=== PATIENT | male | born 1945 | race Caucasian/White ===

== ENCOUNTER → 2016-06-18 | Outpatient (CLI) | payer MEDICARE, BC | LOC: LAB 10:12 | DX: E29.1 Testicular hypofunction (principal) | CPT/HCPCS: 36415; 82670; 84270; 84403; 85025; G0103 ==

== ENCOUNTER → 2016-09-03 | Outpatient (CLI) | payer MEDICARE, BC | END | disposition home or self-care (01) | LOC: LAB.O 12:30 | PROVIDERS: ATTEND Physician Assistant | DX: E29.1 Testicular hypofunction (principal); C61 Malignant neoplasm of prostate ==

== ENCOUNTER → 2016-12-11 | Outpatient (CLI) | payer MEDICARE, BC | END | disposition home or self-care (01) | LOC: LAB.O 09:18 | PROVIDERS: ATTEND Physician Assistant | DX: C61 Malignant neoplasm of prostate (principal) ==

== ENCOUNTER 2017-01-08 18:31 | Emergency (ER) | payer MEDICARE, BC ==
[2017-01-08 18:49] VITALS: TEMP 98.2; O2SAT 95
--- NOTE | 2017-01-08 19:14 | ED.PDOC ---
History of Present Illness - General Chief Complaint: Abdominal Pain Stated Complaint: Abdominal discomfort Time Seen by Provider: 01/08/17 19:09 Information Source: patient Additional Information: HAD PIECE OF WOOD FLY OFF TABLE SAW AND HIT HIM IN THE ABDOMEN. OCCURRED 4 HOURS AGO. C/O CONTINUED PAIN. WAS CONCERNED ABOUT INTERNAL INJURY. - History of Present Illness Abdominal Pain Onset Location: epigastric Pain Radiation: no radiation Quality: moderate, stabbing Improving Factors: nothing Worsening Factors: nothing Review of Systems - Review of Systems Constitutional: Denies: chills, fever EENTM: States: no symptoms reported Respiratory: Denies: cough, short of breath Cardiology: Denies: chest pain, palpitations, syncope Gastrointestinal/Abdominal: States: abdominal pain, vomiting. Denies: nausea Genitourinary: Denies: dysuria, hematuria Musculoskeletal: Denies: back pain, neck pain Skin: States: other - ABRASION Neurological: States: no symptoms reported Endocrine: States: no symptoms reported Past Medical History (General) - Patient Medical History Hx Stroke: No Hx Congestive Heart Failure: No Hx Hypertension: Yes Hx Thyroid Disease: Yes Hx Diabetes: Yes Hx Cancer: Yes - prostate (Rad Tx), thyroid - Vaccination History Hx Influenza Vaccination: No Hx Pneumococcal Vaccination: No - Social History Hx Tobacco Use: No Family Medical History - Family History Father Living Status: Cause of : kidney CA Hx Family Cancer: Yes - kidney Mother Living Status: Age at (years of age): 95 Cause of : old age Hx Family Cancer: Yes - breast CA - tumor Physical Exam - Physical Exam General Appearance: Alert, No apparent distress, Obese Eyes, Ears, Nose, Throat Exam: PERRL/EOMI, normal ENT inspection Neck: non-tender, full range of motion Respiratory: lungs clear, normal breath sounds Cardiovascular/Chest: regular rate, rhythm, no murmur Gastrointestinal/Abdominal: normal bowel sounds, soft, other - LINEAR ABRASION TO EPIGASTIC REGION IN MIDLINE. LARGE NON INCARCERATED VENTRAL HERNIA. SOFT, NO G/R Back Exam: normal inspection, no CVA tenderness Extremity: normal range of motion, non-tender, normal inspection Neurologic: alert, oriented x 3 Skin Exam: other - ABRASION Lymphatic: no adenopathy Progress - EKG/XRAY/CT CT Ordered: Yes - CT ABDOMEN NEG PER RADIOLOGY EXCEPT FOR 3.5 CM AORTIC ANEURYSM Departure - Departure Clinical Impression: Contusion of abdominal wall, initial encounter Hypertension Qualifiers: Hypertension type: essential hypertension Qualified Code(s): I10 - Essential ( primary) hypertension Diabetes Qualifiers: Diabetes mellitus type: type 2 Diabetes mellitus complication status: without complication Time of Disposition: 21:02 Disposition: Discharge to Home or Self Care Condition: Excellent Departure Forms: ED Discharge - Pt. Copy, Patient Portal Self Enrollment Instructions: DI for Contusion Referrals: Jose Kaur MD [Primary Care Provider] - 1-2 Weeks Home Medications: Ambulatory Orders Allopurinol [Zyloprim] 100 mg PO DAILY 05/28/14 Celecoxib [Celebrex] 200 mg PO DAILY 05/28/14 Exenatide [Bydureon] 1 mcg SC WKLY 05/28/14 Furosemide 40 mg PO DAILY 05/28/14 Metformin HCl 1,000 mg PO BID 05/28/14 Rosuvastatin Calcium [Crestor] 10 mg PO DAILY 05/28/14 Silodosin [Rapaflo] 8 mg PO DAILY PRN 05/28/14 Benazepril HCl 40 mg PO DAILY 01/08/17 Levothyroxine Sodium [Synthroid] 100 mcg PO DAILY 01/08/17 Spironolactone 25 mg PO DAILY 01/08/17
--- NOTE | 2017-01-08 20:40 | CT ---
EXAM DESCRIPTION: Abdomen w/Contrast CLINICAL HISTORY: 71 years Male ABDOMINAL TRAUMA COMPARISON: 02/25/2012 TECHNIQUE: Contiguous axial images obtained through the abdomen following IV contrast. Reformatted images obtained. This exam was performed according to our department optimization program which includes automated exposure control, adjustment of the mA and/or kv according to patient size and/or use of iterative reconstruction technique. FINDINGS: The liver appears unremarkable. The spleen and pancreas appear unremarkable. No adrenal masses. The kidneys appear unremarkable. No hydronephrosis. The gallbladder is visualized. There is aneurysmal dilatation of the infrarenal aorta measuring 3.5 cm. Follow-up recommended every 12 months. No evidence of dissection or rupture. No bowel obstruction. The appendix is not visualized.. Pelvis is not included on this exam. Multilevel degenerative change in the spine. IMPRESSION: 3.5 cm infrarenal abdominal aortic aneurysm. Recommend follow-up every 12 months No evidence of acute process in the abdomen Pelvis is not imaged Electronically signed by: Kanwal Thompson 01/08/2017 8:39 PM CDT
[2017-01-08 21:05] VITALS: BP 142/62
== END 2017-01-08 21:12 | disposition home or self-care (01) ==
LOC: ER 18:31
DX: S30.1XXA Contusion of abdominal wall, initial encounter (principal); I10 Essential (primary) hypertension; E11.9 Type 2 diabetes mellitus without complications; I71.4 Abdominal aortic aneurysm, without rupture; Z85.46 Personal history of malignant neoplasm of prostate; Z85.850 Personal history of malignant neoplasm of thyroid; W22.8XXA Striking against or struck by other objects, initial encounter; Y92.9 Unspecified place or not applicable

== ENCOUNTER → 2017-01-31 | Outpatient (CLI) | payer MEDICARE, BC | LOC: RESP 15:20 | PROVIDERS: ATTEND Family Medicine | DX: R00.1 Bradycardia, unspecified (principal) ==

== ENCOUNTER → 2017-02-19 | Outpatient (CLI) | payer MEDICARE, BC | END | disposition home or self-care (01) | LOC: GMAJ 10:50 | PROVIDERS: ATTEND Family Medicine | DX: C61 Malignant neoplasm of prostate (principal) ==

== ENCOUNTER → 2017-09-16 | Outpatient (CLI) | payer MEDICARE, BC | LOC: GMAJ 12:30 | PROVIDERS: ATTEND Family Medicine | DX: C61 Malignant neoplasm of prostate (principal) ==

== ENCOUNTER → 2017-09-19 | Outpatient (CLI) | payer MEDICARE, BC ==
--- NOTE | 2017-09-20 23:38 | CT ---
EXAM DATE: 09/19/2017 12:00 AM CDT. PROCEDURE: CT HEAD WITHOUT IV CONTRAST. INDICATION: HEADACHE. COMPARISON: None. TECHNIQUE: Axial CT images of the head were acquired without intravenous contrast. This exam was performed according to our departmental dose-optimization program which includes use of Automated Exposure Control, adjustment of the mA and/or kV according to patient size and/or use of iterative reconstruction technique. FINDINGS: No acute intracranial hemorrhage. Sykes white matter differentiation is preserved. No mass effect or midline shift. Mild generalized brain volume loss. Unremarkable orbits. Scattered mucosal thickening throughout the paranasal sinuses. Mastoid air cells are clear. Intact calvarium. IMPRESSION: No acute intracranial abnormality. Electronically signed by: Jose Aguilera MD 09/20/2017 11:36 PM CDT
== END ==
LOC: MRI 09:00
PROVIDERS: ATTEND Family Medicine
DX: R51 Headache (principal)

== ENCOUNTER 2017-09-30 05:46 | Day surgery (SDC) | payer MEDICARE, BC ==
[2017-09-30] MEDS ORDERED: LACTATED RINGERS 1,000 ML ONE (06:59)
[2017-09-30 09:27] VITALS: BP 98/63; TEMP 97.7; O2SAT 99
--- NOTE | 2017-09-30 09:48 | OP ---
DATE OF PROCEDURE: 09/30/17 PREOPERATIVE DIAGNOSIS: 1. Colon cancer screen. POSTOPERATIVE DIAGNOSIS: 1. Diverticulosis of the sigmoid colon. PROCEDURE: 1. Colonoscopy. SURGEON: Jose Kaur MD. ANESTHESIA: MAC by Livan Garcia CRNA. ESTIMATED BLOOD LOSS: None. COMPLICATIONS: None apparent. TECHNIQUE: After informed consent was obtained from the patient, the patient was taken to the Endoscopy Suite and put in the left lateral decubitus position. After adequate IV sedation was obtained, a digital rectal exam was performed which revealed decreased sphincter tone, no intraluminal masses, and the prostate is surgically absent. The colonoscope was then passed with good visualization through the colon. The bowel prep was fair. There was a very large amount of liquid stool that had to be suctioned clear, but there was no hard stool. The patient did have whole black-eyed peas in the cecum. The cecum was identified by the presence of ileocecal valve and the usual landmarks. The scope was then withdrawn slowly over the next 10 minutes and a good look at the entire colonic mucosa was obtained. There were a few scattered diverticula seen in the sigmoid region. There were no polyps, masses or other pathology identified. The scope was removed. The patient tolerated the procedure well. The patient was transported to the outpatient area in good condition. He will followup on a p.r.n. basis. He is instructed to stay on his diabetic diet with the addition of high fiber. He will need his next colonoscopy in ten years. #[id number] [id number]
[2017-09-30] MEDS ORDERED: PROPOFOL 200 MG/20 ML VIAL IV ONE (10:00)
== END 2017-09-30 08:55 | disposition home or self-care (01) ==
LOC: AMB 05:46
PROVIDERS: ATTEND Family Medicine
DX: Z12.11 Encounter for screening for malignant neoplasm of colon (principal); K57.30 Diverticulosis of large intestine without perforation or abscess without bleeding; I10 Essential (primary) hypertension; I44.1 Atrioventricular block, second degree; K59.00 Constipation, unspecified; E78.2 Mixed hyperlipidemia; E89.0 Postprocedural hypothyroidism; E11.42 Type 2 diabetes mellitus with diabetic polyneuropathy; G47.33 Obstructive sleep apnea (adult) (pediatric); E66.9 Obesity, unspecified; M10.9 Gout, unspecified; R55 Syncope and collapse; Z95.0 Presence of cardiac pacemaker; Z85.46 Personal history of malignant neoplasm of prostate; Z85.850 Personal history of malignant neoplasm of thyroid; Z96.653 Presence of artificial knee joint, bilateral; Z79.84 Long term (current) use of oral hypoglycemic drugs; Z79.899 Other long term (current) drug therapy
CPT/HCPCS: 00812; 36416; 82948; G0121; J3490; J7120

== ENCOUNTER → 2017-12-05 | Outpatient (CLI) | payer MEDICARE, BC | LOC: LAB.O 08:24 | PROVIDERS: ATTEND Urology | DX: C61 Malignant neoplasm of prostate (principal) ==

== ENCOUNTER 2018-02-18 12:18 | Emergency (ER) | payer MEDICARE, BC ==
[2018-02-18] MEDS ORDERED: KETOROLAC TROMETHAMINE INJ 30 MG/ML VIAL IM ONE (12:46)
--- NOTE | 2018-02-18 12:49 | ED.PDOC ---
History of Present Illness - General Chief Complaint: Dental/Mouth Time Seen by Provider: 02/18/18 12:27 Source: patient Exam Limitations: no limitations - History of Present Illness Initial Comments: patient comes in with left sided severe jaw pain since last night. Patient states yesterday he felt a little bit nauseous and had some tooth pain but it was not bad. This morning he was awakened by severe pain to his jaw and tooth. He has no swelling or redness. He denies any chest pain, shortness of breath, emesis, diaphoresis, or other systemic symptoms. Patient states he has never had this problem before and he did not take any [id number] for it. Patient does have a past medical history of diabetes mellitus, hypertension, and hyperlipidemia. He's had pacemaker placed and states last cardiac appointment was a year ago and he was told he has clear arteries. He's never had heart attack, nor cardiac intervention be on the pacemaker. Timing/Duration: yesterday Severity: moderate EENT Location: dental Prearrival Treatment: no prearrival treatment Improving Factors: nothing Worsening Factors: nothing Associated Symptoms: other - nausea Allergies/Adverse Reactions: Allergies NO KNOWN ALLERGY Allergy (Verified 01/08/17 18:52) Home Medications: Ambulatory Orders Allopurinol [Zyloprim] 100 mg PO DAILY 05/28/14 Celecoxib [Celebrex] 100 mg PO BID 05/28/14 Exenatide [Bydureon] 1 mcg SC WKLY 05/28/14 Furosemide 40 mg PO DAILY 05/28/14 Metformin HCl 1,000 mg PO BID 05/28/14 Rosuvastatin Calcium [Crestor] 10 mg PO DAILY 05/28/14 Silodosin [Rapaflo] 8 mg PO DAILY PRN 05/28/14 Benazepril HCl 40 mg PO DAILY 01/08/17 Levothyroxine Sodium [Synthroid] 100 mcg PO DAILY 01/08/17 Spironolactone 25 mg PO DAILY 01/08/17 Clindamycin HCl 300 mg PO TID #21 cap 02/18/18 Review of Systems - Review of Systems Constitutional: States: no symptoms reported. Denies: chills, fever, weakness EENTM: States: mouth pain. Denies: eye pain, ear pain Respiratory: States: no symptoms reported. Denies: cough, short of breath, wheezing Cardiology: States: no symptoms reported. Denies: chest pain, edema, palpitations Gastrointestinal/Abdominal: States: nausea Genitourinary: States: no symptoms reported Musculoskeletal: States: no symptoms reported Past Medical History (General) - Patient Medical History Hx Stroke: No Hx Congestive Heart Failure: No Hx Hypertension: Yes Hx Thyroid Disease: Yes - thyroid cancer Hx Diabetes: Yes Hx Cancer: Yes - prostate (Rad Tx), thyroid Hx MRSA: No - Vaccination History Hx Influenza Vaccination: No Hx Pneumococcal Vaccination: No - Social History Hx Tobacco Use: No Family Medical History - Family History Father Living Status: Cause of : kidney CA Hx Family Cancer: Yes - kidney Mother Living Status: Age at (years of age): 95 Cause of : old age Hx Family Cancer: Yes - breast CA - tumor Physical Exam - Physical Exam General Appearance: Alert, Comfortable, No apparent distress Eye Exam: bilateral normal Ear Exam: bilateral ear: auricle normal, canal normal, TM normal Nasal Exam: normal inspection Throat Exam: other - cavitary lesions of the inferior 1st and 2nd molar with tenderness to palpation and erythema of the gum and tooth no fluctulance Neck: non-tender, full range of motion, supple Cardiovascular/Respiratory: regular rate, rhythm, no M/R/G, normal peripheral pulses, normal breath sounds, no respiratory distress Abdominal Exam: non-tender Neurologic: alert, oriented x 3 Progress - Results/Orders Results/Orders: Patient Name: REILLY HAY Gender: Male Date of : 1945 CELL Referring Physician: RITO CATHERINE Organization: [facility] Accession Number: [id number] Requested Date: February 18, 2018 12:53 Report Status: Final Requested Procedure: 1 Procedure Description: Maxillofacial Modality: CT Findings Reporting MD: Yury Yao Fellow MD: Not available Dictation Time: Network Professional: Not available Customer Experience Analyst Date: EXAM DESCRIPTION: Maxillofacial: Computed Tomography. CLINICAL HISTORY: left jaw pain. History of thyroid cancer and prostate cancer. COMPARISON: None Available. TECHNIQUE: Spiral, axial 2.5 x 2.5 mm scans through the maxillofacial bones without contrast. Soft tissue and bone algorithms. Coronal and sagittal 2.0 mm reconstructions. Total Exam DLP: 321.68 mGy-cm. This exam was performed according to our departmental CT dose-optimization program which includes automated exposure control, adjustment of the mA and/or kV according to patient size and/or use of iterative reconstruction technique; to reduce radiation dose to as low as reasonably achievable (ALARA). FINDINGS: Mucoperiosteal thickening in the ethmoid air cells. Remaining sinuses are well aerated. No air-fluid levels. Bilateral sphenoid nasal ostia are patent. Bilateral ostiomeatal units are patent. Minimal turbinate mucosal hypertrophy bilaterally. Mild anterior left septal deviation. No bone destruction. Included mastoid air cells are unremarkable. Internal auditory ossicles solitary chambers are grossly normal. No evidence of mandibular fracture or TMJ dislocation or TMJ fracture. Radiolucency noted around bilateral lower molars and upper left second molar. Atlantoaxial arthrosis. Spondylosis and bilateral neural foraminal narrowing C3-4. IMPRESSION: Radiolucency abutting the bilateral mandibular molars, and left upper second molar indicating dental disease. No acute bony abnormality, no destructive or blastic lesions. Mild sinus disease. Cervical spine spondylosis. Findings were discussed by telephone with Dr. Catherine at 1435 hours on 02/18/2018. Electronically signed by: Yury Yao MD 02/18/2018 2:36 PM CDT Departure - Departure Clinical Impression: Dental caries Disposition: Discharge to Home or Self Care Condition: Good Departure Forms: ED Discharge - Pt. Copy, Patient Portal Self Enrollment Instructions: DI for Mouth Pain Diet: regular diet Referrals: Jose Kaur MD [Primary Care Provider] - 1-2 Weeks Home Medications: Ambulatory Orders Allopurinol [Zyloprim] 100 mg PO DAILY 05/28/14 Celecoxib [Celebrex] 100 mg PO BID 05/28/14 Exenatide [Bydureon] 1 mcg SC WKLY 05/28/14 Furosemide 40 mg PO DAILY 05/28/14 Metformin HCl 1,000 mg PO BID 05/28/14 Rosuvastatin Calcium [Crestor] 10 mg PO DAILY 05/28/14 Silodosin [Rapaflo] 8 mg PO DAILY PRN 05/28/14 Benazepril HCl 40 mg PO DAILY 01/08/17 Levothyroxine Sodium [Synthroid] 100 mcg PO DAILY 01/08/17 Spironolactone 25 mg PO DAILY 01/08/17 Clindamycin HCl 300 mg PO TID #21 cap 02/18/18 Additional Instructions: Follow up with dentist in 2-3 days. Return to ER for intractable pain
[2018-02-18 13:19] VITALS: TEMP 97.7
--- NOTE | 2018-02-18 14:38 | CT ---
EXAM DESCRIPTION: Maxillofacial: Computed Tomography. CLINICAL HISTORY: left jaw pain. History of thyroid cancer and prostate cancer. COMPARISON: None Available. TECHNIQUE: Spiral, axial 2.5 x 2.5 mm scans through the maxillofacial bones without contrast. Soft tissue and bone algorithms. Coronal and sagittal 2.0 mm reconstructions. Total Exam DLP: 321.68 mGy-cm. This exam was performed according to our departmental CT dose-optimization program which includes automated exposure control, adjustment of the mA and/or kV according to patient size and/or use of iterative reconstruction technique; to reduce radiation dose to as low as reasonably achievable (ALARA). FINDINGS: Mucoperiosteal thickening in the ethmoid air cells. Remaining sinuses are well aerated. No air-fluid levels. Bilateral sphenoid nasal ostia are patent. Bilateral ostiomeatal units are patent. Minimal turbinate mucosal hypertrophy bilaterally. Mild anterior left septal deviation. No bone destruction. Included mastoid air cells are unremarkable. Internal auditory ossicles solitary chambers are grossly normal. No evidence of mandibular fracture or TMJ dislocation or TMJ fracture. Radiolucency noted around bilateral lower molars and upper left second molar. Atlantoaxial arthrosis. Spondylosis and bilateral neural foraminal narrowing C3-4. IMPRESSION: Radiolucency abutting the bilateral mandibular molars, and left upper second molar indicating dental disease. No acute bony abnormality, no destructive or blastic lesions. Mild sinus disease. Cervical spine spondylosis. Findings were discussed by telephone with Dr. [place] at 1435 hours on 02/18/2018. Electronically signed by: Yury Yao MD 02/18/2018 2:36 PM CDT
[2018-02-18 15:27] VITALS: BP 131/84; O2SAT 96
== END 2018-02-18 15:28 | disposition home or self-care (01) ==
LOC: ER 12:18
DX: K02.9 Dental caries, unspecified (principal); R11.0 Nausea; E11.9 Type 2 diabetes mellitus without complications; I10 Essential (primary) hypertension; E78.5 Hyperlipidemia, unspecified; Z79.84 Long term (current) use of oral hypoglycemic drugs; Z79.899 Other long term (current) drug therapy; Z95.0 Presence of cardiac pacemaker; Z85.46 Personal history of malignant neoplasm of prostate; Z85.850 Personal history of malignant neoplasm of thyroid; Z92.3 Personal history of irradiation
CPT/HCPCS: 70486; J1885

== ENCOUNTER → 2018-06-05 | Outpatient (CLI) | payer MEDICARE, BC | LOC: GMAJ 11:14 | PROVIDERS: ATTEND Family Medicine | DX: E03.9 Hypothyroidism, unspecified (principal) ==

== ENCOUNTER 2018-07-14 00:50 | Emergency (ER) | payer MEDICARE, BC ==
[2018-07-14 01:07] VITALS: TEMP 98.2
[2018-07-14] MEDS ORDERED: SPIRONOLACTONE 25 MG TAB PO ONE (01:18)
--- NOTE | 2018-07-14 01:21 | ED.PDOC ---
History of Present Illness - General Chief Complaint: Blood Pressure Problem Stated Complaint: elevated blood pressure Time Seen by Provider: 07/14/18 01:11 Source: patient Exam Limitations: no limitations - History of Present Illness Initial Comments: the patient is a 72-year-old male presenting to the emergency room secondary to persistently mildly elevated blood pressures today as well as some swelling of his hands. No shortness of breath and no chest pain. No palpitations. No medication changes. Systolic blood pressures have been up in the 150s according to him. Normally his systolic blood pressures are in the 1 teens to 120s. No fever. No palpitations. He is quite anxious. Timing/Duration: unsure Severity: mild Improving Factors: nothing Worsening Factors: nothing Associated Symptoms: denies symptoms Allergies/Adverse Reactions: Allergies NO KNOWN ALLERGY Allergy (Verified 01/08/17 18:52) Home Medications: Ambulatory Orders Allopurinol [Zyloprim] 100 mg PO DAILY 05/28/14 Celecoxib [Celebrex] 100 mg PO BID 05/28/14 Exenatide [Bydureon] 1 mcg SC WKLY 05/28/14 Furosemide 40 mg PO DAILY 05/28/14 Metformin HCl 1,000 mg PO BID 05/28/14 Rosuvastatin Calcium [Crestor] 10 mg PO DAILY 05/28/14 Silodosin [Rapaflo] 8 mg PO DAILY PRN 05/28/14 Benazepril HCl 40 mg PO DAILY 01/08/17 Levothyroxine Sodium [Synthroid] 100 mcg PO DAILY 01/08/17 Spironolactone 25 mg PO DAILY 01/08/17 Clindamycin HCl 300 mg PO TID #21 cap 02/18/18 Review of Systems - Review of Systems Constitutional: States: no symptoms reported EENTM: States: no symptoms reported Respiratory: States: no symptoms reported Cardiology: States: edema Gastrointestinal/Abdominal: States: no symptoms reported Genitourinary: States: no symptoms reported Musculoskeletal: States: no symptoms reported Skin: States: no symptoms reported Neurological: States: anxiety Endocrine: States: no symptoms reported All other Systems: No Change from Baseline Past Medical History (General) - Patient Medical History Hx Stroke: No Hx Cardiac Disorders: Yes - pacemaker Hx Congestive Heart Failure: No Hx Pacemaker: Yes Hx Hypertension: Yes Hx Thyroid Disease: Yes - thyroid cancer Hx Diabetes: Yes Hx Cancer: Yes - prostate Hx MRSA: No Surgical History: appendectomy, pacemaker - Vaccination History Hx Tetanus, Diphtheria Vaccination: No Hx Influenza Vaccination: Yes Hx Pneumococcal Vaccination: No - Social History Hx Tobacco Use: No Hx Chewing Tobacco Use: No Hx Alcohol Use: No Hx Substance Use: No Hx Substance Use Treatment: No Hx Depression: No Hx Physical Abuse: No Hx Emotional Abuse: No Hx Suspected Abuse: No - Female History Patient : No Family Medical History - Family History Father Living Status: Cause of : kidney CA Hx Family Cancer: Yes - kidney Mother Living Status: Age at (years of age): 95 Cause of : old age Hx Family Cancer: Yes - breast CA - tumor Physical Exam - Physical Exam General Appearance: Alert, Comfortable, No apparent distress Eye Exam: bilateral normal Ears, Nose, Throat: hearing grossly normal, normal pharynx Neck: full range of motion, supple, normal inspection Respiratory: lungs clear, normal breath sounds, no respiratory distress, no accessory muscle use Cardiovascular/Chest: normal peripheral pulses, regular rate, rhythm, no edema Peripheral Pulses: radial,right: 2+, radial,left: 2+ Gastrointestinal/Abdominal: non tender, soft Rectal Exam: deferred Extremity: non-tender, no pedal edema, no calf tenderness, normal capillary refill, swelling - subjective swelling of the fingers Neurologic: assistant professor of biology II-XII nml as tested, alert, normal mood/affect, oriented x 3 Skin Exam: normal color Comments: Vital Signs - 24 hr 07/14/18 07/14/18 07/14/18 01:03 01:08 01:14 Temperature 98.2 F Pulse Rate [ 66 62 64 Right] Respiratory 16 16 Rate Blood Pressure 152/97 147/82 120/85 [Left Arm] O2 Sat by Pulse 95 96 95 Oximetry Progress - Progress Progress: 07/14/18 01:21 the patient is a 72-year-old male presenting with a mild elevation of his blood pressure as well as some mild swelling of his fingers today. The patient is going to be given a dose of spironolactone extra tonight. He can continue to follow his blood pressures and keep follow-up with his primary care doctor. Limit salt intake. ER warnings were given. Departure - Departure Clinical Impression: Hand edema Disposition: Discharge to Home or Self Care Condition: Fair Departure Forms: ED Discharge - Pt. Copy, Patient Portal Self Enrollment Diet: low salt diet Activity: increase activity as tolerated Referrals: Jose Kaur MD [Primary Care Provider] - 1-2 Weeks Home Medications: Ambulatory Orders Allopurinol [Zyloprim] 100 mg PO DAILY 05/28/14 Celecoxib [Celebrex] 100 mg PO BID 05/28/14 Exenatide [Bydureon] 1 mcg SC WKLY 05/28/14 Furosemide 40 mg PO DAILY 05/28/14 Metformin HCl 1,000 mg PO BID 05/28/14 Rosuvastatin Calcium [Crestor] 10 mg PO DAILY 05/28/14 Silodosin [Rapaflo] 8 mg PO DAILY PRN 05/28/14 Benazepril HCl 40 mg PO DAILY 01/08/17 Levothyroxine Sodium [Synthroid] 100 mcg PO DAILY 01/08/17 Spironolactone 25 mg PO DAILY 01/08/17 Clindamycin HCl 300 mg PO TID #21 cap 02/18/18 Additional Instructions: the patient is a 72-year-old male presenting with a mild elevation of his blood pressure as well as some mild swelling of his fingers today. The patient is going to be given a dose of spironolactone extra tonight. He can continue to follow his blood pressures and keep follow-up with his primary care doctor. Limit salt intake. ER warnings were given.
[2018-07-14 01:31] VITALS: BP 144/81; O2SAT 96
== END 2018-07-14 01:34 | disposition home or self-care (01) ==
LOC: ER 00:50
DX: R60.0 Localized edema (principal); I10 Essential (primary) hypertension; E11.9 Type 2 diabetes mellitus without complications; Z85.46 Personal history of malignant neoplasm of prostate; Z85.850 Personal history of malignant neoplasm of thyroid; Z95.0 Presence of cardiac pacemaker; Z79.899 Other long term (current) drug therapy

== ENCOUNTER → 2019-02-03 | Outpatient (CLI) | payer MEDICARE, BC | LOC: GMAJ 14:36 | PROVIDERS: ATTEND Family Medicine | DX: E03.9 Hypothyroidism, unspecified (principal); I10 Essential (primary) hypertension; E78.00 Pure hypercholesterolemia, unspecified; E11.9 Type 2 diabetes mellitus without complications ==

== ENCOUNTER → 2019-03-09 | Outpatient (CLI) | payer MEDICARE, BC ==
--- NOTE | 2019-03-09 15:08 | CT ---
EXAM DESCRIPTION: Cervical Spine CLINICAL HISTORY: RADICULOPATHY CERVICAL REGION COMPARISON: None Available. TECHNIQUE: Cervical CT is performed with thin-section axial imaging. MPRs are created and reviewed as well. This exam was performed according to our departmental dose-optimization program, which includes automated exposure control, adjustment of the mA and/or kV according to patient size and/or use of iterative reconstruction technique. FINDINGS: Normal alignment of the cervical spine with preservation of normal lordosis and normal alignment of the vertebral column with preserved vertebral and disc height throughout the spine except for disc degenerative narrowing at C6-7 and to a lesser degree at C5-6 and C7-T1. Advanced degenerative changes anteriorly at the C1-2 articulation is present with normal alignment. On the left diffuse mild to modest facet arthropathy is present. On the right more severe facet arthropathic changes or localized at the C3-4 and C7-T1 levels and to a lesser extent at the other levels. AP diameter of the canal and neural foramina at C2-3 are in the lower range of normal. At C3-4 posterior annular calcification and moderate annular bulge with mild left and moderate right foraminal encroachment is present with AP diameter of the thecal sac lower limits of normal. At C4-5 and modest 3 mm central disc protrusion with calcification without lateralizing to the right or left with adequate neural foramina noted. At C5-6, broad-based disc bulge with disc narrowing and annular calcification and moderate to moderately severe AP diameter canal stenosis is present with severe bilateral foraminal narrowing, left worse than right. At C6-7 broad-based annular bulge and disc osteophyte complex slightly worse on the right than the left with right greater than left foraminal narrowing on this basis and facet disease and disc space narrowing is present. Borderline AP diameter canal stenosis is present. At C7-T1, annular prominence with disc osteophyte complex with adequate canal and neural foramina without lateralizing change noted. Predominant right-sided facet arthropathy does not severely encroach upon the canal at this level. IMPRESSION: 1. Normal alignment of the cervical spine with advanced definite disc degenerative narrowing and posterior bony ridging at C6-7 with milder changes at C5-6 and C7-T1 with additional advanced C1-2 degenerative arthropathy anteriorly and more focal right-sided facet arthropathy at C3-4 and C7-T1. 2. Moderately severe central canal stenosis AP diameter at C5-6 with severe bilateral foraminal narrowing left worse than right. 3. Borderline AP diameter canal narrowing C6-7 with right greater than left foraminal narrowing. Moderate right-sided foraminal narrowing also noted at C3-4. 4. 3 mm central disc protrusion with calcification C4-5 without lateralization to the right or left. Electronically signed by: New Rodriguez MD 03/09/2019 3:06 PM CDT
== END ==
LOC: CT 11:18
PROVIDERS: ATTEND Family Medicine
DX: M50.121 Cervical disc disorder at C4-C5 level with radiculopathy (principal); M50.122 Cervical disc disorder at C5-C6 level with radiculopathy; M50.123 Cervical disc disorder at C6-C7 level with radiculopathy; M50.13 Cervical disc disorder with radiculopathy, cervicothoracic region; M48.02 Spinal stenosis, cervical region; M12.88 Other specific arthropathies, not elsewhere classified, other specified site

== ENCOUNTER → 2019-10-30 | Outpatient (CLI) | payer MEDICARE, BC | LOC: GMAJ 12:07 | PROVIDERS: ATTEND Family Medicine | DX: C61 Malignant neoplasm of prostate (principal); E03.9 Hypothyroidism, unspecified; M10.9 Gout, unspecified; E11.42 Type 2 diabetes mellitus with diabetic polyneuropathy; I10 Essential (primary) hypertension; E78.00 Pure hypercholesterolemia, unspecified ==

== ENCOUNTER 2019-11-15 10:20 | Emergency (ER) | payer MEDICARE, BC ==
--- NOTE | 2019-11-15 10:26 | ED.PDOC ---
History of Present Illness - General Chief Complaint: Cardiovascular Problem Time Seen by Provider: 11/15/19 10:22 Source: patient, RN notes reviewed, Vital Signs reviewed Additional Information: 74yo M h/o pacemaker placement with reported upper abdominal pain. Reports was in zoroastrian and noted acute onset, sharp, non-radiating midepigastric pain. Resolved prior to arrival, and denied any shortness of breath, vomiting, diarrhea, diaphoresis, chest pain, syncope, or other symptoms. Patient denies history of similar pain, but family at bedside reports "slow gallbladder." No other complaints at this time. - History of Present Illness Allergies/Adverse Reactions: Allergies NO KNOWN ALLERGY Allergy (Verified 11/23/18 02:06) Home Medications: Ambulatory Orders Allopurinol [Zyloprim] 300 mg PO DAILY 05/28/14 Celecoxib [Celebrex] 100 mg PO BID 05/28/14 Exenatide [Bydureon] 1 mg SC WKLY 05/28/14 Furosemide 40 mg PO DAILY 05/28/14 Metformin HCl [Metformin Hydrochloride] 1,000 mg PO BID 05/28/14 Rosuvastatin Calcium [Crestor] 10 mg PO DAILY 05/28/14 Benazepril HCl 40 mg PO DAILY 01/08/17 Levothyroxine Sodium [Synthroid] 0.15 mg PO DAILY 01/08/17 Spironolactone 25 mg PO DAILY 01/08/17 Levothyroxine Sodium 300 mcg PO BELLO 11/15/19 Review of Systems - Review of Systems Constitutional: Denies: chills, fever Respiratory: Denies: cough Cardiology: States: chest pain Gastrointestinal/Abdominal: Denies: vomiting All other Systems: Reviewed and Negative Past Medical History (General) - Patient Medical History Hx Seizures: No Hx Stroke: No Hx Dementia: No Hx Asthma: No Hx of COPD: No Hx Cardiac Disorders: Yes - pacemaker-Apr 2017;bradycardia symptomatic Hx Congestive Heart Failure: No Hx Pacemaker: Yes - implanted in 2016 Hx Hypertension: Yes Hx Thyroid Disease: Yes - thyroid cancer Hx Diabetes: Yes Hx Gastroesophageal Reflux: No Hx Renal Disease: No Hx Cancer: Yes - prostate Hx of HIV: No Hx Hepatitis C: No Hx MRSA: No - Vaccination History Hx Tetanus, Diphtheria Vaccination: No Hx Influenza Vaccination: Yes Hx Pneumococcal Vaccination: No - Social History Hx Tobacco Use: No Hx Chewing Tobacco Use: No Hx Alcohol Use: No Hx Substance Use: No Hx Substance Use Treatment: No Hx Depression: No Hx Physical Abuse: No Hx Emotional Abuse: No Hx Suspected Abuse: No - Female History Patient : No Family Medical History - Family History Father Living Status: Cause of : kidney CA Hx Family Cancer: Yes - kidney Mother Living Status: Age at (years of age): 95 Cause of : old age Hx Family Cancer: Yes - breast CA - tumor Physical Exam - Physical Exam General Appearance: Alert, No apparent distress, Well Developed, Well Nourished Eyes, Ears, Nose, Throat Exam: PERRL/EOMI Neck: non-tender, full range of motion Respiratory: chest non-tender, lungs clear, normal breath sounds Cardiovascular/Chest: normal peripheral pulses, regular rate, rhythm, no edema Gastrointestinal/Abdominal: normal bowel sounds, non tender, soft, no pulsatile mass Extremity: non-tender, no pedal edema 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 Patient is awake and alert without noted altered mental status. No noted anginal equivalents for possible intrathoracic etiology, however, patient with pacemaker and transient pain reported in epigastrium. Does not clinically appear torsion, obstruction, or aortic pathology. Abdomen remained soft and non- peritonitic on recheck and patient remained pain free on first recheck. Discussed labs with patient, likelihood repeat troponin would be reassuring, and he voiced understanding and agreement with plan of care. 11/15/19 13:44 Patient continued to be asymptomatic on recheck. Discussed labs, imaging, and plan of care with patient. He and family voiced understanding and desired discharge. ED warnings given, f/u primary care. 11/15/19 13:46 Joe Bailey, #[id number] - EKG/XRAY/CT Comments: 1023 V-paved rate 67, no STEMI Departure - Departure Clinical Impression: Abdominal pain Time of Disposition: 13:45 Disposition: Discharge to Home or Self Care Condition: Good Departure Forms: ED Discharge - Pt. Copy, Patient Portal Self Enrollment Instructions: Stomach Ache and Stomach Upset Diet: low fat, low cholesterol Referrals: Jose Kaur MD [Primary Care Provider] - 1-5 Days Home Medications: Ambulatory Orders Allopurinol [Zyloprim] 300 mg PO DAILY 05/28/14 Celecoxib [Celebrex] 100 mg PO BID 05/28/14 Exenatide [Bydureon] 1 mg SC WKLY 05/28/14 Furosemide 40 mg PO DAILY 05/28/14 Metformin HCl [Metformin Hydrochloride] 1,000 mg PO BID 05/28/14 Rosuvastatin Calcium [Crestor] 10 mg PO DAILY 05/28/14 Benazepril HCl 40 mg PO DAILY 01/08/17 Levothyroxine Sodium [Synthroid] 0.15 mg PO DAILY 01/08/17 Spironolactone 25 mg PO DAILY 01/08/17 Levothyroxine Sodium 300 mcg PO BELLO 11/15/19 Additional Instructions: You were seen in the [facility] Emergency Department today. Please fill and take the medications as prescribed (if any) and if you were prescribed antibiotics, please complete the full course. You will need further evaluation on an out patient basis. You must follow up with the listed locations and within the time frames indicated in your discharge paperwork (including your PCP in 3-5 days). Failure to follow up with any studies or doctor visits within the timeframe mentioned could result in poor outcome. Your examination today in the ED did not reveal a new or old problem that required immediate surgery or admission to the hospital. However, you should return to the ED if you are not improving as instructed (especially within the first 6 to 24 hours). This may include things such as uncontrolled vomiting, shortness of breath, fever, bleeding, or severe pain in a body part. You should return for any new or worsening emergency symptoms such as chest pain, severe headache, confusion, or severe abdominal pain. Finally, return to the emergency department if you have any concerns not mentioned above that are concerning to you or if you are unable to follow up as instructed above. Thank you for coming to [facility]. It was our pleasure to serve you today and we thank you for your visit.
[2019-11-15] MEDS ORDERED: ASPIRIN TABLET 325 MG TAB PO ONE (10:34)
[2019-11-15] MEDS ORDERED: SODIUM CHLORIDE 0.9% (FLUSH) 10 ML SYG IV PRN (10:34)
--- NOTE | 2019-11-15 11:15 | RAD ---
: 1945. Technique: Portable AP chest x-ray. Comparison: November 23, 2018. Clinical history: chest pain. Heart size: Enlarged heart. Left transvenous pacemaker. No vascular congestion. Lungs: The lung bases are underpenetrated due to soft tissue summation. I cannot exclude an infiltrate or atelectasis at the left base where the diaphragm contour is no longer sharply defined. Pleura: No pleural effusion. No pneumothorax. Mediastinum and brooke: Unremarkable. Skeletal: Cervical fusion hardware. Support tubings: None. Impression: 1. Possible left lower lobe atelectasis or infiltrate. 2. Cardiomegaly. Electronically signed by: Antoine Gillis MD 11/15/2019 11:14 AM CDT
[2019-11-15 11:40] VITALS: O2SAT 94
[2019-11-15 14:03] VITALS: BP 134/80; TEMP 98.2
== END 2019-11-15 13:55 | disposition home or self-care (01) ==
LOC: ER 10:20
DX: R10.10 Upper abdominal pain, unspecified (principal); I10 Essential (primary) hypertension; E11.9 Type 2 diabetes mellitus without complications; Z85.46 Personal history of malignant neoplasm of prostate; Z95.0 Presence of cardiac pacemaker

== ENCOUNTER → 2020-03-01 | Outpatient (CLI) | payer MEDICARE, BC ==
--- NOTE | 2020-03-01 14:56 | CT ---
EXAM: Head CLINICAL HISTORY: UNSPEC SYMPTOMS AND SIGNS INVOLVING COGNITIVE FUNCTIONS COMPARISON STUDY: CT head from September 19, 2017 TECHNICAL: Noncontrast CT images were acquired through the brain. FINDINGS: The cerebral and cerebellar parenchyma demonstrate no acute abnormality. There is a mild diffuse cerebral and cerebellar atrophy. No intracranial hemorrhage. No masses are identified. The calvarium appears intact. IMPRESSION: No acute abnormality. This exam was performed according to our departmental dose-optimization program, which includes automated exposure control, adjustment of the mA and/or kV according to patient size and/or use of iterative reconstruction technique. Electronically signed by: Khoa Fernandes MD 03/01/2020 2:54 PM CDT
== END ==
LOC: CT 10:07
PROVIDERS: ATTEND Family Medicine
DX: R41.9 Unspecified symptoms and signs involving cognitive functions and awareness (principal)

== ENCOUNTER → 2020-03-08 | Outpatient (CLI) | payer MEDICARE, BC | LOC: GMAJ 11:29 | PROVIDERS: ATTEND Family Medicine | DX: M10.9 Gout, unspecified (principal); E11.9 Type 2 diabetes mellitus without complications; E78.00 Pure hypercholesterolemia, unspecified ==

== ENCOUNTER 2020-05-03 16:52 | Emergency (ER) | payer MEDICARE, BC ==
--- NOTE | 2020-05-03 17:54 | RAD ---
EXAM: Chest,1 View CLINICAL INDICATION: Cough COMPARISON: 11/15/2019 FINDINGS: A single view of the chest was obtained. The heart size is normal. A left-sided pacemaker is noted. The pulmonary vascularity is unremarkable. The lungs are clear. There is no consolidation, infiltrate, pleural effusion, or pneumothorax. IMPRESSION: No evidence of active pulmonary disease. Electronically signed by: Conor Mccann MD 05/03/2020 5:53 PM WEEKDAY BABYSITTER
[2020-05-03] MEDS ORDERED: SODIUM CHLORIDE 0.9% 1000ML 1,000 ML IVS ONE (18:50)
--- NOTE | 2020-05-03 18:51 | ED.PDOC ---
History of Present Illness - General Chief Complaint: General Stated Complaint: weakness, diarrhea Time Seen by Provider: 05/03/20 17:31 Source: patient Exam Limitations: no limitations - History of Present Illness Initial Comments: weakness, diarrhea x 2 d. POS LU 10 D AGO. NO SOB. GOOD PO INTAKE. Severity: moderate Improving Factors: nothing Worsening Factors: nothing Associated Symptoms: denies symptoms Allergies/Adverse Reactions: Allergies NO KNOWN ALLERGY Allergy (Verified 05/03/20 17:19) Home Medications: Ambulatory Orders Allopurinol [Zyloprim] 300 mg PO DAILY 05/28/14 Celecoxib [Celebrex] 100 mg PO BID 05/28/14 Exenatide [Bydureon] 1 mg SC WKLY 05/28/14 Furosemide 40 mg PO DAILY 05/28/14 Metformin HCl [Metformin Hydrochloride] 1,000 mg PO BID 05/28/14 Rosuvastatin Calcium [Crestor] 10 mg PO DAILY 05/28/14 Benazepril HCl 40 mg PO DAILY 01/08/17 Levothyroxine Sodium [Synthroid] 0.15 mg PO DAILY 01/08/17 Spironolactone 25 mg PO DAILY 01/08/17 Levothyroxine Sodium 300 mcg PO BELLO 11/15/19 Review of Systems - Review of Systems Constitutional: States: weakness. Denies: chills, fever EENTM: States: no symptoms reported Respiratory: States: no symptoms reported. Denies: cough, short of breath Cardiology: States: no symptoms reported. Denies: chest pain, palpitations Gastrointestinal/Abdominal: States: diarrhea. Denies: abdominal pain, nausea, vomiting Genitourinary: States: no symptoms reported Musculoskeletal: States: no symptoms reported Skin: States: no symptoms reported Neurological: States: no symptoms reported Endocrine: States: no symptoms reported Hematologic/Lymphatic: States: no symptoms reported All other Systems: Reviewed and Negative Past Medical History (General) - Patient Medical History Hx Seizures: No Hx Stroke: No Hx Dementia: No Hx Asthma: No Hx of COPD: No Hx Cardiac Disorders: Yes - pacemaker-Apr 2017;bradycardia symptomatic Hx Congestive Heart Failure: No Hx Pacemaker: Yes - implanted in 2016 Hx Hypertension: Yes Hx Thyroid Disease: Yes - thyroid cancer Hx Diabetes: Yes Hx Gastroesophageal Reflux: No Hx Renal Disease: No Hx Cancer: Yes - prostate Hx of HIV: No Hx Hepatitis C: No Hx MRSA: No Surgical History: appendectomy - Vaccination History Hx Tetanus, Diphtheria Vaccination: No Hx Influenza Vaccination: Yes Hx Pneumococcal Vaccination: No - Social History Hx Tobacco Use: No Hx Chewing Tobacco Use: No Hx Alcohol Use: No Hx Substance Use: No Hx Substance Use Treatment: No Hx Depression: No Hx Physical Abuse: No Hx Emotional Abuse: No Hx Suspected Abuse: No - Activities of Daily Living Hospice Agency (if applicable):: None - Female History Patient is a Female of Child Bearing Age (10 -59 yrs old): No Patient : No Family Medical History - Family History Father Living Status: Cause of : kidney CA Hx Family Cancer: Yes - kidney Mother Living Status: Age at (years of age): 95 Cause of : old age Hx Family Cancer: Yes - breast CA - tumor Physical Exam - Physical Exam General Appearance: Alert, Obese Eye Exam: bilateral normal Ears, Nose, Throat: hearing grossly normal, normal ENT inspection Neck: non-tender, full range of motion Respiratory: lungs clear, normal breath sounds Cardiovascular/Chest: regular rate, rhythm, no murmur Peripheral Pulses: radial,right: 2+, radial,left: 2+ Gastrointestinal/Abdominal: normal bowel sounds, non tender, soft Rectal Exam: deferred Back Exam: normal inspection, no CVA tenderness Extremity: normal range of motion, normal inspection, no pedal edema Neurologic: alert, normal mood/affect Skin Exam: normal color, warm/dry Lymphatic: no adenopathy Progress - Results/Orders Results/Orders: COVID NEG. CXR NEG. CMP NEG. CBC UNREMARKABLE (WBC AND LYMPHS JUST BELOW NL). BP 113/68 - BOLUSED NS. 95% RA. VIRAL GASTROENTERITIS CAUSING DIARRHEA AND WEAKNESS. FLUIDS. REST. Departure - Departure Clinical Impression: Viral gastroenteritis, Weakness, Mild dehydration Diarrhea Qualifiers: Diarrhea type: infectious Qualified Code(s): A09 - Infectious gastroenteritis and colitis, unspecified Disposition: Discharge to Home or Self Care Condition: Good Departure Forms: ED Discharge - Pt. Copy, Patient Portal Self Enrollment Instructions: Viral Gastroenteritis, Adult (DC) Diet: bland diet Activity: other - Get plenty of rest. Referrals: Jose Kaur MD [Primary Care Provider] - 1-2 Weeks Home Medications: Ambulatory Orders Allopurinol [Zyloprim] 300 mg PO DAILY 05/28/14 Celecoxib [Celebrex] 100 mg PO BID 05/28/14 Exenatide [Bydureon] 1 mg SC WKLY 05/28/14 Furosemide 40 mg PO DAILY 05/28/14 Metformin HCl [Metformin Hydrochloride] 1,000 mg PO BID 05/28/14 Rosuvastatin Calcium [Crestor] 10 mg PO DAILY 05/28/14 Benazepril HCl 40 mg PO DAILY 01/08/17 Levothyroxine Sodium [Synthroid] 0.15 mg PO DAILY 01/08/17 Spironolactone 25 mg PO DAILY 01/08/17 Levothyroxine Sodium 300 mcg PO BELLO 11/15/19 Additional Instructions: Drink at least 64 ounces of water and fluids per day.
[2020-05-03 20:14] VITALS: O2SAT 94
[2020-05-03 20:56] VITALS: BP 116/70; TEMP 97.5
== END 2020-05-03 20:56 | disposition home or self-care (01) ==
LOC: ER 16:52
DX: A08.4 Viral intestinal infection, unspecified (principal); E86.0 Dehydration; I10 Essential (primary) hypertension; E11.9 Type 2 diabetes mellitus without complications; E66.9 Obesity, unspecified; Z20.828 Contact with and (suspected) exposure to other viral communicable diseases; Z95.0 Presence of cardiac pacemaker; Z85.46 Personal history of malignant neoplasm of prostate; Z85.850 Personal history of malignant neoplasm of thyroid; Z90.49 Acquired absence of other specified parts of digestive tract; Z79.84 Long term (current) use of oral hypoglycemic drugs; Z79.899 Other long term (current) drug therapy; Z68.35 Body mass index [BMI] 35.0-35.9, adult
CPT/HCPCS: 36415; 71045; 80053; 85025; 87635; J7030

== ENCOUNTER → 2020-07-11 | Outpatient (CLI) | payer MEDICARE, BC | LOC: GMAJ 10:38 | PROVIDERS: ATTEND Family Medicine | DX: D51.9 Vitamin B12 deficiency anemia, unspecified (principal); I10 Essential (primary) hypertension; E11.9 Type 2 diabetes mellitus without complications; E78.00 Pure hypercholesterolemia, unspecified ==

== ENCOUNTER 2020-07-30 21:55 | Emergency (ER) | payer MEDICARE, BC ==
[2020-07-30] MEDS ORDERED: ONDANSETRON INJ 4 MG/2 ML VIAL IV ONE (22:12)
[2020-07-30] MEDS ORDERED: HYDROmorphone HCL INJ 2 MG/ML VIAL IV ONE (22:12)
--- NOTE | 2020-07-30 22:18 | ED.PDOC ---
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 HE HAS HAD SEVERAL EPISODES OF NAUSEA AND VOMITING, BOTH THE PAIN AND THE NAUSEA IS BETTER NOW. DENIES OTHER ASSOCIATED SYMPTOMS Abdominal Pain Onset Location: epigastric Pain Radiation: no radiation Timing/Duration: 1 hour Improving Factors: nothing Worsening Factors: nothing Associated Symptoms: denies symptoms Review of Systems - Review of Systems Constitutional: States: diaphoresis EENTM: States: no symptoms reported Respiratory: States: no symptoms reported Cardiology: States: no symptoms reported Gastrointestinal/Abdominal: States: see HPI Genitourinary: States: no symptoms reported Musculoskeletal: States: no symptoms reported Skin: States: no symptoms reported Neurological: States: no symptoms reported Endocrine: States: no symptoms reported Hematologic/Lymphatic: States: no symptoms reported Past Medical History (General) - Patient Medical History Hx Seizures: No Hx Stroke: No Hx Dementia: No Hx Asthma: No Hx of COPD: No Hx Cardiac Disorders: Yes - pacemaker-Apr 2017;bradycardia symptomatic Hx Congestive Heart Failure: No Hx Pacemaker: Yes - implanted in 2016 Hx Hypertension: Yes Hx Thyroid Disease: Yes - thyroid cancer Hx Diabetes: Yes Hx Gastroesophageal Reflux: No Hx Renal Disease: No Hx Cancer: Yes - prostate Hx of HIV: No Hx Hepatitis C: No Hx MRSA: No Surgical History: appendectomy, other - MULTIPLE JOINT SURGERIES, VENTRAL HERNIA REPAIR - Vaccination History Hx Tetanus, Diphtheria Vaccination: No Hx Influenza Vaccination: Yes Hx Pneumococcal Vaccination: No - Social History Hx Tobacco Use: No Hx Chewing Tobacco Use: No Hx Alcohol Use: No Hx Substance Use: No Hx Substance Use Treatment: No Hx Depression: No Hx Physical Abuse: No Hx Emotional Abuse: No Hx Suspected Abuse: No - Female History Patient : No Family Medical History - Family History Father Living Status: Cause of : kidney CA Hx Family Cancer: Yes - kidney Mother Living Status: Age at (years of age): 95 Cause of : old age Hx Family Cancer: Yes - breast CA - tumor Physical Exam - Physical Exam General Appearance: Alert, Well Developed, Well Groomed, Well Hydrated, Well Nourished Eyes, Ears, Nose, Throat Exam: PERRL/EOMI, normal ENT inspection, TMs normal, pharynx normal Neck: non-tender, full range of motion, supple, normal inspection Respiratory: lungs clear, normal breath sounds, no respiratory distress Cardiovascular/Chest: normal peripheral pulses, regular rate, rhythm, no edema, no gallop, no JVD, no murmur Peripheral Pulses: No deficit Gastrointestinal/Abdominal: normal bowel sounds, non tender, soft Pelvic Exam: normal external exam, normal adnexa, no cerv. motion tender Progress - Progress Progress: 07/30/20 22:38 EXAM: Chest,1 View CLINICAL INDICATION: Abdominal pain COMPARISON: 05/03/2020 FINDINGS: A single view of the chest was obtained. The heart size is normal. The pulmonary vascularity is unremarkable. The lungs are clear. There is no consolidation, infiltrate, pleural effusion, or pneumothorax. A left-sided pacemaker is noted. IMPRESSION: No evidence of active pulmonary disease. Electronically signed by: Conor Mccann MD 07/30/2020 10:35 PM 2238: NAUSEA IMPROVED POST ZOFRAN. - Additional EKG/XRAY/Consults EKG #2: Sinus, no ST T wave changes Comments: PROLONGED QT, LAFB, LVH WITH REPOLARIZATION ABN, NO STEMI, ABN EKG Departure - Departure Clinical Impression: Gastroenteritis Time of Disposition: 23:20 Disposition: Discharge to Home or Self Care Departure Forms: ED Discharge - Pt. Copy, Patient Portal Self Enrollment Instructions: DI for Abdominal Pain-Adult Diet: other - CLEAR LIQUID X 24 HOURS, THEN BRAT DIET X 24 HOURS THEN REGULAR Referrals: Jose Kaur MD [Primary Care Provider] - 1-2 Weeks Prescriptions: Ondansetron Odt [Zofran ODT] 8 mg PO TID PRN #20 tab PRN Reason: Nausea Home Medications: Ambulatory Orders Allopurinol [Zyloprim] 300 mg PO DAILY 05/28/14 Celecoxib [Celebrex] 100 mg PO BID 05/28/14 Furosemide 40 mg PO DAILY 05/28/14 Metformin HCl [Metformin Hydrochloride] 1,000 mg PO BID 05/28/14 Rosuvastatin Calcium [Crestor] 10 mg PO DAILY 05/28/14 Benazepril HCl 40 mg PO DAILY 01/08/17 Levothyroxine Sodium [Synthroid] 0.15 mg PO DAILY 01/08/17 Ondansetron Odt [Zofran ODT] 8 mg PO TID PRN #20 tab 07/30/20 Additional Instructions: RETURN IF UNABLE TO KEEP LIQUIDS DOWN.
--- NOTE | 2020-07-30 22:36 | RAD ---
EXAM: Chest,1 View CLINICAL INDICATION: Abdominal pain COMPARISON: 05/03/2020 FINDINGS: A single view of the chest was obtained. The heart size is normal. The pulmonary vascularity is unremarkable. The lungs are clear. There is no consolidation, infiltrate, pleural effusion, or pneumothorax. A left-sided pacemaker is noted. IMPRESSION: No evidence of active pulmonary disease. Electronically signed by: Conor Mccann MD 07/30/2020 10:35 PM LEAD TRAINER
[2020-07-30] MEDS ORDERED: PROMETHAZINE HCL INJ 25 MG/ML VIAL IM ONE (22:49)
[2020-07-30] MEDS ORDERED: SODIUM CHLORIDE 0.9% 1000ML 1,000 ML IVS ONE (22:59)
--- NOTE | 2020-07-30 23:12 | CT ---
EXAM: CT Abdomen and Pelvis Without Intravenous Contrast CLINICAL HISTORY: The patient is 74 years old and is Male; epigastric pain TECHNIQUE: Axial computed tomography images of the abdomen and pelvis without intravenous contrast. Sagittal and coronal reformatted images were created and reviewed. This CT exam was performed using one or more of the following dose reduction techniques: automated exposure control, adjustment of the mA and/or kV according to patient size, and/or use of iterative reconstruction technique. COMPARISON: CT of the abdomen and pelvis November 26, 2018 FINDINGS: LUNG BASES: Unremarkable. No mass. No consolidation. ABDOMEN: LIVER: Homogeneous without focal mass. GALLBLADDER AND BILE DUCTS: The gallbladder is physiologically distended. No calcified gallstones or ductal dilatation is seen. PANCREAS: Unremarkable. No ductal dilation. SPLEEN: Unremarkable. ADRENALS: Unremarkable. No mass. KIDNEYS AND URETERS: A 2.7 cm left renal cyst is present. There is no hydronephrosis or hydroureter of either kidney. No obstructing renal or ureteral calculus is seen. Bilateral nonspecific perinephric stranding is present. STOMACH AND BOWEL: The stomach is distended with food contents. The small bowel is relatively normal in caliber. A few small bowel loops within the central abdomen are minimally prominent with adjacent stranding of the mesentery. A moderate amount stool is present throughout colon. There is no bowel obstruction. PELVIS: APPENDIX: No findings to suggest acute appendicitis. BLADDER: The bladder is moderately distended. No stones. REPRODUCTIVE: The prostate is minimally prominent. ABDOMEN and PELVIS: INTRAPERITONEAL SPACE: Unremarkable. No free air. No significant fluid collection. BONES/JOINTS: Multilevel degenerative change of the spine is present. SOFT TISSUES: The soft tissues are normal. VASCULATURE: Multiple calcified phleboliths are present within the pelvis. Atherosclerosis of the vasculature is present. There is mild dilatation of the infrarenal abdominal aorta measuring 4 cm is noted. LYMPH NODES: Unremarkable. No enlarged lymph nodes. IMPRESSION: 1. Few prominent small bowel loops within the left/central abdomen with adjacent stranding in the mesentery may be secondary to a focal enteritis. There is no evidence of bowel obstruction. 2. Aneurysmal dilatation of the abdominal aorta. Recommend follow-up every 12 months and vascular consultation. Reference: J Am Nadja Radiol 2013;10:789-794. Electronically signed by: Idalia Abarca MD 07/30/2020 11:10 PM MOBILE DESIGNER
[2020-07-31 00:14] VITALS: BP 127/78; TEMP 98; O2SAT 98
== END 2020-07-31 00:05 | disposition home or self-care (01) ==
LOC: ER 21:55
DX: K52.9 Noninfective gastroenteritis and colitis, unspecified (principal); I45.81 Long QT syndrome; I44.4 Left anterior fascicular block; I51.7 Cardiomegaly; I10 Essential (primary) hypertension; E11.9 Type 2 diabetes mellitus without complications; Z90.49 Acquired absence of other specified parts of digestive tract; Z95.0 Presence of cardiac pacemaker; Z79.84 Long term (current) use of oral hypoglycemic drugs; Z79.899 Other long term (current) drug therapy
CPT/HCPCS: 71045; 74176; 80053; 81001; 83690; 84484; 85025; 93005; J1170; J2405; J2550; J7030